=== PATIENT | female | born 1945 | race American Indian/Alaskan Native ===

== ENCOUNTER 2017-04-30 11:25 | Outpatient (CLI) | payer MEDICARE ==
--- NOTE | 2017-04-30 16:26 | Mammography Report ---
BILATERAL DIGITAL SCREENING MAMMOGRAM with CAD: 04/30/17 11:25:00 CLINICAL: Routine screening. COMPARISON:01/10/16 and 05/05/13 FINDINGS: The breasts are mostly fatty with a few bilateral scattered fibroglandular densities. Left asymmetries require additional imaging.No architectural distortion or suspicious calcifications.The right breast is negative. IMPRESSION: Left asymmetries requiring further workup. BI-RADS CATEGORY: 0 -- Additional Imaging Evaluation Required RECOMMENDATION: Recall for left exaggerated CC, mediolateral , spot magnification CC and MLO views and left breast ultrasound if needed. ACR BI-RADS MAMMOGRAPHIC CODES: 0 = Needs additional imaging evaluation; 1 = Negative; 2 = Benign; 3 = Probably benign; 4 = Suspicious; 5 = Malignant; 6 = Known biopsy-proven malignancy COMMENT: 1. Dense breast tissue, i.e., adenosis, fibrocystic changes, etc., may obscure an underlying neoplasm. 2. Approximately 10% of cancers are not detected with mammography. 3. A negative mammography report should not delay biopsy if a clinically suspicious mass is present. COMMENT: Patient follow-up letters are generated via our [employer] application.
== END 2017-04-30 11:26 | disposition home or self-care (01) ==
LOC: SPVWC 11:25
PROVIDERS: ATTEND Internal Medicine Endocrinology, Diabetes & Metabolism
DX: Z12.31 Encounter for screening mammogram for malignant neoplasm of breast (principal)
CPT/HCPCS: 77067

== ENCOUNTER 2017-05-14 08:56 | Outpatient (CLI) | payer MEDICARE ==
--- NOTE | 2017-05-14 09:46 | Mammography Report ---
LEFT DIGITAL DIAGNOSTIC MAMMOGRAM : 05/14/17 08:56:00 CLINICAL: Recalled for asymmetry. COMPARISON:04/30/17 screening FINDINGS: ML and spot compression ML, MLO and CC views were performed. Satisfactory effacement of asymmetry. IMPRESSION: Negative Mammogram. BI-RADS CATEGORY: 1 -- Negative RECOMMENDATION: Routine mammographic screening in one year. ACR BI-RADS MAMMOGRAPHIC CODES: 0 = Needs additional imaging evaluation; 1 = Negative; 2 = Benign; 3 = Probably benign; 4 = Suspicious; 5 = Malignant; 6 = Known biopsy-proven malignancy COMMENT: 1. Dense breast tissue, i.e., adenosis, fibrocystic changes, etc., may obscure an underlying neoplasm. 2. Approximately 10% of cancers are not detected with mammography. 3. A negative mammography report should not delay biopsy if a clinically suspicious mass is present. COMMENT: Patient follow-up letters are generated via our [employer] application.
== END 2017-05-14 08:57 | disposition home or self-care (01) ==
LOC: SPVWC 08:56
PROVIDERS: ATTEND Internal Medicine Endocrinology, Diabetes & Metabolism
DX: R92.8 Other abnormal and inconclusive findings on diagnostic imaging of breast (principal)

== ENCOUNTER 2018-02-18 15:01 | Outpatient (CLI) | payer MEDICARE ==
[2018-02-18 15:42] LABS: Blood Urea Nitrogen 12 mg/dL (7-17)
== END 2018-02-18 15:02 | disposition home or self-care (01) ==
LOC: US 15:01
PROVIDERS: ATTEND Internal Medicine
DX: R10.9 Unspecified abdominal pain (principal)
CPT/HCPCS: 36415; 82565; 84520

== ENCOUNTER 2018-02-19 10:56 | Outpatient (CLI) | payer MEDICARE ==
--- NOTE | 2018-02-19 12:33 | Magnetic Resonance Report ---
MRA/MRV ABDOMEN WITH AND WITHOUT CONTRAST History: Abdominal pain when eating. Technique: Multisequence, multiplanar MR imaging. MRA/MRV following contrast. Rotational MIP images. Comparison: No relevant comparison. Findings: The abdominal aorta, bilateral iliac systems, celiac axis, SMA, ISABELLA, and bilateral single renal arteries are widely patent with less than 20% stenosis. There is no evidence for aneurysm, dissection, stenosis or fibromuscular changes. Delayed images of the venous structure demonstrates patency of the IVC, renal veins, common iliac arteries and portal venous system. There are numerous gallstones within the gallbladder. No evidence for biliary dilatation or choledocholithiasis. Normal liver, pancreas, spleen, kidneys and visualized bowel loops. No evidence for ascites, adenopathy or acute inflammation. Impression: Normal MRA/MRV of the abdomen. Cholelithiasis.
--- NOTE | 2018-02-19 20:25 | Ultrasound Report ---
FINAL REPORT EXAM: US ABDOMEN COMPLETE HISTORY: ABDOMINAL PAIN WITH EATING TECHNIQUE: Real-time sonography was performed of the abdomen. Images are submitted for interpretatio n. PRIORS: None. FINDINGS: The liver has heterogeneous increased echogenicity consistent with fatty infiltration. There are mult iple stones in the gallbladder. There is no gallbladder wall thickening or pericholecystic fluid. The re is no evidence of biliary dilatation, the common bile duct measures 7 mm. The pancreas has a normal echogenicity and appearance. The visualized segments of the abdominal aorta appear normal. The spleen appears normal, measuring 7.2 x 2.4 x 2.1 cm. There is an 8 mm calcification in the upper pole of the right kidney. There is no hydronephrosis. The right kidney measures 10.7 x 4.4 x 4.6 cm. The left kidney measures 9.4 x 5.2 x 4.8 cm. IMPRESSION: 1. Diffuse fatty infiltration of the liver 2. Cholelithiasis without CT evidence of acute cholecystitis 3. 8 mm nonobstructing stone in the upper pole of the right kidney
== END 2018-02-19 10:57 | disposition home or self-care (01) ==
LOC: US 10:56
PROVIDERS: ATTEND Internal Medicine
DX: K80.20 Calculus of gallbladder without cholecystitis without obstruction (principal); K76.0 Fatty (change of) liver, not elsewhere classified; N20.0 Calculus of kidney
CPT/HCPCS: 76700; A9577; C8902; 74185

== ENCOUNTER 2018-06-10 09:13 | Outpatient (CLI) | payer MEDICARE ==
--- NOTE | 2018-06-10 14:28 | Mammography Report ---
BILATERAL DIGITAL SCREENING MAMMOGRAM with CAD: 06/10/18 09:13:00 CLINICAL: Routine screening. COMPARISON:04/30/17 FINDINGS: The breasts are mostly fatty. No mass, architectural distortion or suspicious calcifications. IMPRESSION: No mammographic evidence of malignancy. BI-RADS CATEGORY: 1 - - Negative RECOMMENDATION: Routine mammographic screening in one year. COMMENT: Patient follow-up letters are generated by our [employer] application.
== END 2018-06-10 09:14 | disposition home or self-care (01) ==
LOC: SPVWC 09:13
PROVIDERS: ATTEND Internal Medicine
DX: Z12.31 Encounter for screening mammogram for malignant neoplasm of breast (principal)
CPT/HCPCS: 77067

== ENCOUNTER 2019-08-12 12:03 | Outpatient (CLI) | payer MEDICARE ==
--- NOTE | 2019-08-13 09:17 | Mammography Report ---
DIGITAL SCREENING MAMMOGRAM WITH CAD, 08/12/2019 INDICATION: Routine screening mammography. SCREENING MAMMOGRAM TECHNIQUE: Digital bilateral 2D mammography was obtained in the craniocaudal and mediolateral obliq ue projections. This examination was interpreted with the benefit of Computer-Aided Detection analysi s. COMPARISON: 01/10/2016 FINDINGS: Breast Density: The breasts are almost entirely fatty. There is no evidence of dominant mass, suspicious calcifications or architectural distortion in eithe r breast. A few scattered nodular densities are again noted in the breasts, especially on the cc view s. IMPRESSION: Follow up recommendation: Routine yearly BI-RADS Category 2: Benign. A "normal" or negative report should not discourage follow up or biopsy of a clinically significant f inding. A written summary of these findings will be mailed to the patient. The patient will be entered into a mammography reporting system which will generate a reminder letter for the patient's next appointmen t at the appropriate interval. The [employer] recommends yearly mammograms starting at age 40 and continuing as l kandy as a woman is in good health. Breast MRI is recommended for women with an approximate 20-25% or greater lifetime risk of breast cancer, including women with a strong family history of breast or ova kole cancer or who have been treated for Hodgkin's disease. Signer Name: Jhonny Ramirez MD Signed: 08/13/2019 9:13 AM Workstation Name: [email or web address]
== END 2019-08-12 12:04 | disposition home or self-care (01) ==
LOC: SPVWC 12:03
PROVIDERS: ATTEND Internal Medicine
DX: Z12.31 Encounter for screening mammogram for malignant neoplasm of breast (principal)
CPT/HCPCS: 77067

== ENCOUNTER 2020-08-12 11:07 | Outpatient (CLI) | payer MEDICARE ==
--- NOTE | 2020-08-12 14:32 | Mammography Report ---
DIGITAL SCREENING MAMMOGRAM WITH CAD, 08/12/2020 CLINICAL INFORMATION / INDICATION: Routine screening mammography. SCREENING MAMMO TECHNIQUE: Digital bilateral 2D mammography was obtained in the craniocaudal and mediolateral obliqu e projections. This examination was interpreted with the benefit of Computer-Aided Detection analysis . COMPARISON: 10/23/2011 through 08/12/2019. FINDINGS: Breast Density: The breasts are almost entirely fatty. No dominant mass, suspicious calcifications, or architectural distortion in either breast. Mild asymmetric breast tissue in the left upper outer quadrant posteriorly is stable. No new abnormal ity is seen. IMPRESSION: No mammographic evidence of malignancy. Follow up recommendation: Routine yearly BI-RADS Category 2: Benign. A "normal" or negative report should not discourage follow up or biopsy of a clinically significant f inding. A written summary of these findings will be mailed to the patient. The patient will be entered into a mammography reporting system which will generate a reminder letter for the patient's next appointmen t at the appropriate interval. The [employer] recommends yearly mammograms starting at age 40 and continuing as l kandy as a woman is in good health. Breast MRI is recommended for women with an approximate 20-25% or greater lifetime risk of breast cancer, including women with a strong family history of breast or ova kole cancer or who have been treated for Hodgkin's disease. Signer Name: Griffin Nogueira MD Signed: 08/12/2020 2:28 PM Workstation Name: [id number]
== END 2020-08-12 11:08 | disposition home or self-care (01) ==
LOC: SPVWC 11:07
PROVIDERS: ATTEND Internal Medicine
DX: Z12.31 Encounter for screening mammogram for malignant neoplasm of breast (principal); N64.89 Other specified disorders of breast
CPT/HCPCS: 77067

== ENCOUNTER 2021-10-12 09:01 | Outpatient (CLI) | payer MEDICARE ==
--- NOTE | 2021-10-12 13:16 | Mammography Report ---
DIGITAL SCREENING MAMMOGRAM WITH CAD, 10/12/2021 CLINICAL INFORMATION / INDICATION: Routine screening mammography. TECHNIQUE: Digital bilateral 2D mammography was obtained in the craniocaudal and mediolateral oblique projections. This examination was interpreted with the benefit of Computer-Aided Detection analysis. COMPARISON: 06/10/2018 through 08/12/2020. FINDINGS: Breast Density: The breasts are almost entirely fatty. No dominant mass, suspicious calcifications, or architectural distortion in either breast. There are minimal breast arterial calcifications bilaterally. IMPRESSION: No mammographic evidence of malignancy. Follow up recommendation: Routine yearly screening mammogram. BI-RADS Category 2: BENIGN. A "normal" or negative report should not discourage follow up or biopsy of a clinically significant f inding. A written summary of these findings will be mailed to the patient. The patient will be entered into a mammography reporting system which will generate a reminder letter for the patient's next appointmen t at the appropriate interval. The [employer] recommends yearly mammograms starting at age 40 and continuing as l kandy as a woman is in good health. Breast MRI is recommended for women with an approximate 20-25% or greater lifetime risk of breast cancer, including women with a strong family history of breast or ova kole cancer or who have been treated for Hodgkin's disease. Signer Name: Griffin Nogueiar MD Signed: 10/12/2021 1:12 PM Workstation Name: [email or web address]
== END 2021-10-12 09:02 | disposition home or self-care (01) ==
LOC: SPVWC 09:01
PROVIDERS: ATTEND Internal Medicine
DX: Z12.31 Encounter for screening mammogram for malignant neoplasm of breast (principal); N64.89 Other specified disorders of breast
CPT/HCPCS: 77067